=== PATIENT | male | born 1990 | race Caucasian/White ===

== ENCOUNTER 2022-11-25 13:51 | Inpatient (IN) | payer OTHER ==
[2022-11-25 14:16] VITALS: BMI 29.0
[2022-11-25] MEDS ORDERED: BENZOCAINE/MENTHOL (CHLORASEPTIC ) LOZENGE MM PRN (17:05)
[2022-11-25] MEDS ORDERED: POLYETHYLENE GLYCOL (HEALTHYLAX) 3350 17 GM PACKET PO PRN (17:05)
[2022-11-25] MEDS ORDERED: cloNIDine HCL 0.1 MG TABLET PO PRN (17:05)
[2022-11-25] MEDS ORDERED: MAG HYDROX/AL HYDROX/SIMETH 30 ML UNIT-DOSE CUP PO PRN (17:05)
[2022-11-25] MEDS ORDERED: DICYCLOMINE HCL 10 MG CAPSULE PO PRN (17:05)
[2022-11-25] MEDS ORDERED: ONDANSETRON *ODT* 4 MG TABLET SL PRN (17:05)
[2022-11-25] MEDS ORDERED: BISMUTH SUBSALICYLATE 524 MG/30 ML PO PRN (17:05)
[2022-11-25] MEDS ORDERED: ACETAMINOPHEN 325 MG TABLET (FP) PO PRN (17:05)
[2022-11-25] MEDS ORDERED: LOPERAMIDE HCL 2 MG CAPSULE PO PRN (17:05)
[2022-11-25] MEDS ORDERED: guaiFENesin 600 MG TABLET.ER (FP) PO PRN (17:05)
[2022-11-25] MEDS ORDERED: BENZONATATE 200 MG CAPSULE PO PRN (17:05)
[2022-11-25] MEDS ORDERED: NALOXONE HCL 0.4 MG/ML VIAL IM PRN (17:05)
[2022-11-25] MEDS ORDERED: NALOXONE HCL (KLOXXADO) 8 MG SPRAY NS PRN (17:05)
[2022-11-25] MEDS ORDERED: MAGNESIUM HYDROX 2400MG/30ML ORAL SUSPENSION 30 ML CUP PO PRN (17:05)
[2022-11-25] MEDS ORDERED: IBUPROFEN 400 MG TABLET (FP) PO PRN (17:05)
[2022-11-25] MEDS ORDERED: methaDONE HCL 10 MG TABLET (FOR DETOX USE ONLY) PO ONE (18:00)
[2022-11-25] MEDS: THIAMINE HCL 100 MG TABLET (FP) PO SCH (22:15)
[2022-11-25] MEDS: diazePAM 5 MG TABLET PO SCH (22:15)
[2022-11-25] MEDS: MELATONIN 5 MG TABLETS PO SCH (22:15)
[2022-11-26] MEDS: diazePAM 5 MG TABLET PO SCH ×4 (05:44→22:06)
[2022-11-26] MEDS: PRENATAL VITAMINS W/ FOLIC ACID TABLET (FP) PO SCH (10:06)
[2022-11-26 12:18] LABS: HEMATOCRIT 41.3 % (35.4-49); HEMOGLOBIN 14.3 GM/dL (11.7-16.9); MCH 30.9 pg (25.7-33.7); MCHC 34.6 g/dl (32.0-35.9); MEAN CELL VOLUME 89.3 fl (80-96); MEAN PLT VOLUME 8.3 fl (7.5-11.1); PLATELET COUNT 340 10^3/uL (134-434); RBC 4.63 M/mm3 (4.00-5.60); RDW 13.1 % (11.9-15.9); WHITE BLOOD COUNT 9.2 K/mm3 (4.0-10.0)
[2022-11-26 12:33] LABS: CHLORIDE 105 mmol/L (98-107); POTASSIUM 4.5 mmol/L (3.5-5.1); SODIUM 139 mmol/L (136-145)
[2022-11-26 12:50] LABS: CALCIUM 9.2 mg/dL (8.5-10.1); GLUCOSE,RANDOM 95 mg/dL (74-106)
[2022-11-26 12:52] LABS: ALBUMIN 3.8 g/dl (3.4-5.0); CREATININE 0.9 mg/dL (0.55-1.3)
[2022-11-26 12:53] LABS: SGOT/AST 318 U/L (15-37)
[2022-11-26 12:54] LABS: ANION GAP 3 mmol/L (4-13); BILIRUBIN,TOTAL 0.8 mg/dL (0.2-1); CO2 31 mmol/L (21-32)
[2022-11-26 12:55] LABS: ALK PHOS 206 U/L (45-117); SGPT/ALT 202 U/L (13-61)
[2022-11-26] MEDS: THIAMINE HCL 100 MG TABLET (FP) PO SCH (22:06)
[2022-11-26] MEDS: MELATONIN 5 MG TABLETS PO SCH (22:06)
[2022-11-26] MEDS: IBUPROFEN 600 MG TABLET (FP) PO PRN (22:07)
[2022-11-27] MEDS: diazePAM 5 MG TABLET PO SCH ×3 (05:46→21:59)
[2022-11-27] MEDS ORDERED: methaDONE HCL 10 MG TABLET (FOR DETOX USE ONLY) PO ONE (10:00)
[2022-11-27] MEDS: PRENATAL VITAMINS W/ FOLIC ACID TABLET (FP) PO SCH (10:11)
[2022-11-27] MEDS: diazePAM 5 MG TABLET PO PRN (16:59)
[2022-11-27] MEDS: THIAMINE HCL 100 MG TABLET (FP) PO SCH (21:59)
[2022-11-27] MEDS: MELATONIN 5 MG TABLETS PO SCH (21:59)
[2022-11-27] MEDS: METHOCARBAMOL 500 MG TABLET PO PRN (21:59)
[2022-11-28] MEDS: diazePAM 5 MG TABLET PO SCH ×2 (05:25→17:29)
[2022-11-28] MEDS: METHOCARBAMOL 500 MG TABLET PO PRN ×2 (05:26→22:21)
[2022-11-28] MEDS: PRENATAL VITAMINS W/ FOLIC ACID TABLET (FP) PO SCH (10:11)
[2022-11-28 11:32] LABS: BASO % 0.2 % (0-2.0); EOS % 0.1 % (0-4.5); HEMATOCRIT 41.8 % (35.4-49); HEMOGLOBIN 14.1 GM/dL (11.7-16.9); LYMPH % 14.7 % (8-40); MCH 30.7 pg (25.7-33.7); MCHC 33.7 g/dl (32.0-35.9); MEAN PLT VOLUME 8.6 fl (7.5-11.1); MONO % 10.5 % (3.8-10.2); NEUT % 74.5 % (42.8-82.8); PLATELET COUNT 352 10^3/uL (134-434); RBC 4.59 M/mm3 (4.00-5.60); WHITE BLOOD COUNT 11.4 K/mm3 (4.0-10.0)
[2022-11-28 11:42] LABS: CALCIUM 9.5 mg/dL (8.5-10.1)
[2022-11-28 11:43] LABS: BLOOD UREA NITROGEN 9.6 mg/dL (7-18)
[2022-11-28 11:46] LABS: CREATININE 0.9 mg/dL (0.55-1.3)
[2022-11-28] MEDS: diazePAM 5 MG TABLET PO PRN (15:16)
[2022-11-28] MEDS: SUVOREXANT 10 MG TABLET PO PRN (22:19)
[2022-11-28] MEDS: MELATONIN 5 MG TABLETS PO SCH (22:20)
[2022-11-28] MEDS: hydrOXYzine PAMOATE 25 MG CAPSULE (FP) PO PRN (22:21)
[2022-11-28] MEDS: THIAMINE HCL 100 MG TABLET (FP) PO SCH (22:21)
[2022-11-29] MEDS: METHOCARBAMOL 500 MG TABLET PO PRN ×2 (05:32→21:42)
[2022-11-29] MEDS: hydrOXYzine PAMOATE 25 MG CAPSULE (FP) PO PRN (05:32)
[2022-11-29] MEDS ORDERED: diazePAM 5 MG TABLET PO ONE (06:00)
[2022-11-29] MEDS ORDERED: methaDONE HCL 10 MG TABLET (FOR DETOX USE ONLY) PO ONE (10:00)
[2022-11-29] MEDS: PRENATAL VITAMINS W/ FOLIC ACID TABLET (FP) PO SCH (10:15)
[2022-11-29] MEDS: SUVOREXANT 10 MG TABLET PO PRN (21:42)
[2022-11-29] MEDS: THIAMINE HCL 100 MG TABLET (FP) PO SCH (21:43)
[2022-11-29] MEDS: MELATONIN 5 MG TABLETS PO SCH (21:44)
[2022-11-30] MEDS: METHOCARBAMOL 500 MG TABLET PO PRN ×2 (05:45→12:48)
[2022-11-30 08:49] VITALS: RESP 18; TEMP 97.6
[2022-11-30] MEDS: IBUPROFEN 600 MG TABLET (FP) PO PRN (08:51)
[2022-11-30] MEDS: PRENATAL VITAMINS W/ FOLIC ACID TABLET (FP) PO SCH (10:42)
[2022-11-30 14:03] VITALS: BP 106/62; PULSE 61
== END 2022-11-30 14:51 | disposition other institution (70) | DRG 773 ==
LOC: YASAS 13:51 → Y3N 17:35
PROVIDERS: ADMIT Allergy & Immunology; ATTEND Surgery
PROC: HZ2ZZZZ Detoxification Services for Substance Abuse Treatment (ICD-10-PCS; principal; 2022-11-25)
DX: F11.23 Opioid dependence with withdrawal (principal); F10.230 Alcohol dependence with withdrawal, uncomplicated; F12.20 Cannabis dependence, uncomplicated; F17.210 Nicotine dependence, cigarettes, uncomplicated; G47.00 Insomnia, unspecified; M54.50 Low back pain, unspecified; G89.29 Other chronic pain; R74.01 Elevation of levels of liver transaminase levels; Z28.310 Unvaccinated for COVID-19; Z28.9 Immunization not carried out for unspecified reason
CPT/HCPCS: 36415; 80048; 80053; 80307; 85025; 85027; 86780; 87635

== ENCOUNTER 2022-11-30 14:49 | Inpatient (IN) | payer OTHER ==
[2022-11-30] MEDS ORDERED: IBUPROFEN 400 MG TABLET (FP) PO PRN (15:30)
[2022-11-30] MEDS ORDERED: COLLOIDAL OATMEAL 1 BAR EACH TP PRN (15:30)
[2022-11-30] MEDS ORDERED: POLYETHYLENE GLYCOL (HEALTHYLAX) 3350 17 GM PACKET PO PRN (15:30)
[2022-11-30] MEDS ORDERED: BENZONATATE 200 MG CAPSULE PO PRN (15:30)
[2022-11-30] MEDS ORDERED: NICOTINE POLACRILEX 4 MG GUM BUC PRN (15:30)
[2022-11-30] MEDS ORDERED: NALOXONE HCL 0.4 MG/ML VIAL IVPUSH PRN (15:30)
[2022-11-30] MEDS ORDERED: MAG HYDROX/AL HYDROX/SIMETH 30 ML UNIT-DOSE CUP PO PRN (15:30)
[2022-11-30] MEDS ORDERED: hydrOXYzine PAMOATE 25 MG CAPSULE (FP) PO PRN (15:30)
[2022-11-30] MEDS ORDERED: guaiFENesin 600 MG TABLET.ER (FP) PO PRN (15:30)
[2022-11-30] MEDS ORDERED: IBUPROFEN 600 MG TABLET (FP) PO PRN (15:30)
[2022-11-30] MEDS ORDERED: ACETAMINOPHEN 325 MG TABLET (FP) PO PRN (15:30)
[2022-11-30] MEDS ORDERED: AMMONIUM LACTATE 12% LOTION 225 GM BOTTLE TP PRN (15:30)
[2022-11-30] MEDS ORDERED: NALOXONE HCL (KLOXXADO) 8 MG SPRAY NS PRN (15:30)
[2022-11-30] MEDS ORDERED: BENZOCAINE/MENTHOL (CHLORASEPTIC ) LOZENGE MM PRN (15:30)
[2022-11-30] MEDS ORDERED: MAGNESIUM HYDROX 2400MG/30ML ORAL SUSPENSION 30 ML CUP PO PRN (15:30)
[2022-11-30] MEDS ORDERED: LOPERAMIDE HCL 2 MG CAPSULE PO PRN (15:30)
[2022-11-30] MEDS ORDERED: NICOTINE 14 MG/24 HOURS TOPICAL PATCH TD PRN (15:30)
[2022-11-30] MEDS: THIAMINE HCL 100 MG TABLET (FP) PO SCH (21:11)
[2022-11-30] MEDS ORDERED: MELATONIN 5 MG TABLETS PO SCH (22:00)
[2022-12-01] MEDS: PRENATAL VITAMINS W/ FOLIC ACID TABLET (FP) PO SCH (09:56)
[2022-12-01] MEDS: METHOCARBAMOL 500 MG TABLET PO PRN (09:57)
[2022-12-01] MEDS ORDERED: FLU VACCINE (FLULAVAL) PF 60 MCG/0.5 ML SYRINGE 2023-2024 IM ONE (12:00)
[2022-12-01] MEDS ORDERED: PNEUMOC 20-VAL CONJ-DIP CRM/PF 0.5 ML SYRINGE IM ONE (12:00)
[2022-12-01 13:51] LABS: HIV INTERPRETATION NEGATIVE (NEGATIVE)
[2022-12-01] MEDS ORDERED: MELATONIN 5 MG TABLETS PO SCH (15:55)
[2022-12-01] MEDS: THIAMINE HCL 100 MG TABLET (FP) PO SCH (21:14)
[2022-12-01] MEDS: SUVOREXANT 15 MG TABLET PO PRN (21:14)
[2022-12-01] MEDS: LACTULOSE 20 GM/30 ML UDC (FOR ORAL USE ONLY) PO SCH (21:14)
[2022-12-02] MEDS: LACTULOSE 20 GM/30 ML UDC (FOR ORAL USE ONLY) PO SCH ×3 (07:00→21:20)
[2022-12-02] MEDS: METHOCARBAMOL 500 MG TABLET PO PRN (07:01)
[2022-12-02] MEDS: PRENATAL VITAMINS W/ FOLIC ACID TABLET (FP) PO SCH (09:48)
[2022-12-02] MEDS: SUVOREXANT 15 MG TABLET PO PRN (21:19)
[2022-12-02] MEDS: THIAMINE HCL 100 MG TABLET (FP) PO SCH (21:20)
[2022-12-03] MEDS: LACTULOSE 20 GM/30 ML UDC (FOR ORAL USE ONLY) PO SCH ×3 (06:42→21:28)
[2022-12-03] MEDS: METHOCARBAMOL 500 MG TABLET PO PRN ×2 (06:44→21:27)
[2022-12-03] MEDS: PRENATAL VITAMINS W/ FOLIC ACID TABLET (FP) PO SCH (10:11)
[2022-12-03] MEDS: THIAMINE HCL 100 MG TABLET (FP) PO SCH (21:26)
[2022-12-03] MEDS: SUVOREXANT 15 MG TABLET PO PRN (21:27)
[2022-12-04] MEDS: LACTULOSE 20 GM/30 ML UDC (FOR ORAL USE ONLY) PO SCH ×3 (06:40→21:43)
[2022-12-04] MEDS: METHOCARBAMOL 500 MG TABLET PO PRN ×2 (06:41→21:42)
[2022-12-04] MEDS: PRENATAL VITAMINS W/ FOLIC ACID TABLET (FP) PO SCH (09:35)
[2022-12-04] MEDS: THIAMINE HCL 100 MG TABLET (FP) PO SCH (21:41)
[2022-12-04] MEDS: SUVOREXANT 15 MG TABLET PO PRN (21:42)
[2022-12-04] MEDS ORDERED: SUVOREXANT 15 MG TABLET PO PRN (22:00)
[2022-12-05] MEDS: LACTULOSE 20 GM/30 ML UDC (FOR ORAL USE ONLY) PO SCH (06:51)
[2022-12-05 07:05] VITALS: RESP 18; TEMP 97.5
[2022-12-05] MEDS: PRENATAL VITAMINS W/ FOLIC ACID TABLET (FP) PO SCH (10:07)
[2022-12-05 10:45] VITALS: BP 121/69; PULSE 100
== END 2022-12-05 09:25 | disposition left against medical advice (07) | DRG 770 ==
LOC: YASAS 14:49 → Y3W 14:50
PROVIDERS: ADMIT Allergy & Immunology; ATTEND Psychiatry & Neurology Pain Medicine
PROC: HZ42ZZZ Group Counseling for Substance Abuse Treatment, Cognitive-Behavioral (ICD-10-PCS; principal; 2022-11-30)
DX: F10.20 Alcohol dependence, uncomplicated (principal); F14.20 Cocaine dependence, uncomplicated; F12.20 Cannabis dependence, uncomplicated; F17.210 Nicotine dependence, cigarettes, uncomplicated; E72.20 Disorder of urea cycle metabolism, unspecified; G47.00 Insomnia, unspecified; M54.50 Low back pain, unspecified; G89.29 Other chronic pain; R44.8 Other symptoms and signs involving general sensations and perceptions; Z88.0 Allergy status to penicillin
CPT/HCPCS: 36415; 82140; 86704; 86707; 86803; 87350; 87389; 87517